=== PATIENT | female | born 1975 | race Caucasian/White ===

== ENCOUNTER 2017-03-20 14:40 | Outpatient (CLI) | payer MEDICAID ==
--- NOTE | 2017-03-20 15:44 | Mammography Report ---
Bilateral mammogram: No previous studies are available. CAD study utilized. Findings: Predominance adipose tissue bilaterally. Focal ill-defined asymmetry upper-outer anterior left breast. No microcalcifications. Normal axilla. Impression: Focal asymmetry left breast. Comparison with previous studies is recommended. If previous studies are not available spot mag and if necessary sonographic examination advised. BI-RADS CATEGORY: 0 = Needs additional imaging evaluation ACR BI-RADS MAMMOGRAPHIC CODES: 0 = Needs additional imaging evaluation; 1 = Negative; 2 = Benign; 3 = Probably benign; 4 = Suspicious; 5 = Malignant; 6 = Known biopsy-proven malignancy COMMENT: 1. Dense breast tissue, i.e., adenosis, fibrocystic changes, etc., may obscure an underlying neoplasm. 2. Approximately 10% of cancers are not detected with mammography. 3. A negative mammography report should not delay biopsy if a clinically suspicious mass is present. COMMENT: Patient follow-up letters are generated in [employer].
== END 2017-03-20 14:41 | disposition home or self-care (01) ==
LOC: MAMMO 14:40
PROVIDERS: ATTEND Obstetrics & Gynecology
DX: Z12.31 Encounter for screening mammogram for malignant neoplasm of breast (principal)
CPT/HCPCS: 77067; G0202

== ENCOUNTER 2017-05-17 15:38 | Emergency (ER) | payer MEDICAID ==
[2017-05-17 16:34] VITALS: BP 125/87
[2017-05-17 17:06] LABS: Basophils % (Auto) 0.4 % (0.0-1.8); Eosinophils % (Auto) 2.4 % (0.0-4.3); Hematocrit 33.8 % (30.3-42.9); Hemoglobin 11.3 gm/dl (10.1-14.3); Mean Corpuscular HGB Conc 33 % (30-34); Mean Corpuscular Hemoglobin 28 pg (28-32); Mean Corpuscular Volume 85 fl (79-97); Platelet Count 273 K/mm3 (140-440); Red Blood Count 3.96 M/mm3 (3.65-5.03); Red Cell Distribution Width 16.8 % (13.2-15.2); White Blood Count 9.1 K/mm3 (4.5-11.0)
[2017-05-17 17:32] LABS: Alanine Aminotransferase 10 units/L (7-56); Albumin 4.3 g/dL (3.9-5); Albumin/Globulin Ratio 1.3 %; Alkaline Phosphatase 94 units/L (35-129); Anion Gap 17 mmol/L; BUN/Creatinine Ratio 30; Bilirubin,Total < 0.20 mg/dL (0.1-1.2); Blood Urea Nitrogen 15 mg/dL (7-17); Calcium 8.6 mg/dL (8.4-10.2); Carbon Dioxide 26 mmol/L (22-30); Chloride 100.9 mmol/L (98-107); Glucose 95 mg/dL (65-100); Lipase 33 units/L (13-60); Potassium 3.9 mmol/L (3.6-5.0); Sodium 140 mmol/L (137-145); Total Protein 7.5 g/dL (6.3-8.2)
[2017-05-17 17:36] LABS: Bilirubin,Urine NEG (Negative); Blood,Urine MOD (Negative); Ketones,Urine TR mg/dL (Negative); Leukocyte Esterase,Urine NEG (Negative); Mucus,Urine FEW /HPF; Nitrite,Urine NEG (Negative); Protein,Urine <15 mg/dL mg/dL (Negative); Urobilinogen,Urine < 2.0 mg/dL (<2.0); WBC,Urine < 1.0 /HPF (0.0-6.0)
== END 2017-05-17 23:22 | disposition left against medical advice (07) ==
LOC: ED 15:38
DX: M54.9 Dorsalgia, unspecified (principal); Z53.21 Procedure and treatment not carried out due to patient leaving prior to being seen by health care provider
CPT/HCPCS: 36415; 80053; 81001; 83690; 85025

== ENCOUNTER 2017-08-11 12:12 | Emergency (ER) | payer MEDICAID ==
[2017-08-11] MEDS ORDERED: NORCO 10/325 PO ONE (13:22)
--- NOTE | 2017-08-11 13:24 | Emergency Department Report ---
Blank Doc - Documentation Documentation: Patient 41-year-old with right sided chest pain radiating to back for 3 months. Has not taking any medication for symptoms. Symptoms got worse today 10 out of 10 to the point that patient can no longer proceed with her ADLs so she came to the ED. No nausea vomiting. 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 No long distance driving, no long flights. No leg pains or swelling.
[2017-08-11 13:34] LABS: Basophils % (Auto) 0.4 % (0.0-1.8); Eosinophils # (Auto) 0.1 K/mm3 (0.0-0.4); Eosinophils % (Auto) 1.4 % (0.0-4.3); Hematocrit 34.2 % (30.3-42.9); Hemoglobin 11.1 gm/dl (10.1-14.3); Lymphocytes # (Auto) 1.5 K/mm3 (1.2-5.4); Lymphocytes % (Auto) 14.7 % (13.4-35.0); Mean Corpuscular HGB Conc 32 % (30-34); Mean Corpuscular Hemoglobin 27 pg (28-32); Mean Corpuscular Volume 85 fl (79-97); Monocytes # (Auto) 0.7 K/mm3 (0.0-0.8); Monocytes % (Auto) 6.5 % (0.0-7.3); Red Blood Count 4.04 M/mm3 (3.65-5.03); Red Cell Distribution Width 16.5 % (13.2-15.2)
[2017-08-11 13:53] LABS: Alanine Aminotransferase 10 units/L (7-56); Albumin 3.6 g/dL (3.9-5); BUN/Creatinine Ratio 26; Blood Urea Nitrogen 13 mg/dL (7-17); Calcium 8.1 mg/dL (8.4-10.2); Hemolysis Index 86
[2017-08-11 14:16] LABS: Platelet Count 264 K/mm3 (140-440)
[2017-08-11] MEDS ORDERED: NACL 0.9% 1000 ML 1,000 ML IV ONE (15:19)
[2017-08-11] MEDS ORDERED: ZOFRAN IV ONE (15:20)
--- NOTE | 2017-08-11 17:20 | Cat Scan Report ---
FINAL REPORT EXAM: CT ANGIO CHEST HISTORY: severe right chest pain, vomiting COMPARISON: None available. TECHNIQUE: Contiguous axial images were obtained. Additional sagittal and coronal reformatted images were obtained. Administration of IV contrast given per institution protocol. Images submitted for interpretation. 100 cc Omnipaque 350. Max intensity projection images. FINDINGS: Heart upper limits of normal in size. Thoracic aorta is normal in caliber. No dissection. No pulmonary embolus. No pathologically enlarged intrathoracic or axillary lymph nodes. Mild linear atelectasis at the lung bases. Mild prominence of the extrapleural fat. No large airspace consolidation or effusion. Visualized thyroid gland is unremarkable. Tracheobronchial tree is patent. Please see CT of the abdomen and pelvis from the same day for further details of the visualized upper abdomen. Bony thorax is grossly intact. IMPRESSION: No pulmonary embolus. Thoracic aorta is normal in caliber. No dissection. Mild atelectasis at the lung bases. No dense consolidation or effusion.
--- NOTE | 2017-08-11 17:26 | Cat Scan Report ---
FINAL REPORT EXAM: CT ANGIO ABDOMEN PELVIS HISTORY: severe right chest pain, vomiting COMPARISON: CT of the chest from the same date. TECHNIQUE: Contiguous axial images were obtained. Additional sagittal and coronal reformatted images were obtained. Administration of IV contrast given per institution protocol. Images submitted for interpretation. Max intensity projection images. FINDINGS: Please see CT of the chest from the same day for further details of the visualized lung bases. Gallbladder surgically absent. Common bile duct measures up to 6 millimeters, borderline dilated. This likely relates to patient's post cholecystectomy state. Liver, spleen, pancreas are unremarkable. There is thickening the bilateral adrenal glands. No dominant mass. Horseshoe kidney. No solid renal lesion or hydronephrosis. Aorta is normal in caliber. No dissection or rupture. Major branches of the aorta are widely patent. Urinary bladder is partially decompressed. Uterus and ovaries are grossly unremarkable. There are few pelvic phleboliths. Trace fluid in the pelvis within physiologic limits. Portions of the colon are decompressed. This limits evaluation wall thickening. No adjacent fat stranding or fluid to suggest active inflammation the decompressed bowel. The appendix is normal in caliber measuring 5 millimeters. Lumbar vertebral body heights are preserved. Bony pelvis is grossly intact. IMPRESSION: Abdominal aorta is normal in caliber. No dissection or rupture. Major branches of the aorta widely patent. Mild wall thickening of the colon which appears relate to its decompressed state. No adjacent fat stranding or fluid to suggest active inflammation. Subtle colitis is not excluded. The appendix is normal in caliber. Incidental note of horseshoe kidney. No solid renal lesion or hydronephrosis.
--- NOTE | 2017-08-11 18:19 | Emergency Department Report ---
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 female with daughter at beside for chest pain on right side radiating to mid back with inhalation and movement for 3 months. 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 She went to [facility] and they diagnosed patient with muscle spasms. They didn't give her anything for symptoms or referral for f/u. She has not taken anything OTC for symptoms. Symptoms got worse today causing decrease in ADL's. Patient describes pain as 10 /10 with inhalation and movement. Denies nausea/vomiting, fever, numbness/ tingling, edema to BLE, and recent travel. MD Complaint: back pain (chest pain radiating to mid back) -: month(s) (3) Similar Symptoms Previously: Yes (She went to [facility] 1 month ago for the same symptoms) Place: home, work Severity: severe Severity scale (0 -10): 10 Quality: sharp, stabbing Consistency: intermittent Improves With: none Worsens With: movement, deep breaths/cough Context: unknown Associated Symptoms: chest pain (right side of chest). denies: numbness, difficulty walking, cough, difficulty urinating, diaphoresis, incontinence, fever/chills, constipation, headaches, abdominal pain, loss of appetite, malaise , nausea/vomiting, rash, seizure, shortness of breath, syncope - Related Data Previous Rx's Medication Instructions Recorded Last Taken Type Azithromycin [Zithromax Z-ROLDAN] 250 mg PO DAILY 5 Days #6 tablet 08/11/17 Unknown Rx Cyclobenzaprine HCl [Flexeril 5 MG 5 mg PO TID PRN #20 tab 08/11/17 Unknown Rx TAB] Diclofenac Potassium 50 mg PO Q6H PRN #20 tablet 08/11/17 Unknown Rx Allergies Allergy/AdvReac Type Severity Reaction Status Date / Time No Known Allergies Allergy Verified 05/17/17 16:28 ED Review of Systems ROS: Stated complaint: BACK PAIN Other details as noted in HPI Constitutional: denies: chills, fever Respiratory: denies: cough, shortness of breath, wheezing Cardiovascular: chest pain (with breathing). denies: palpitations Endocrine: no symptoms reported Gastrointestinal: denies: abdominal pain, nausea, diarrhea Musculoskeletal: back pain (right flank pain with movement and breathing). denies: joint swelling, arthralgia Skin: denies: rash, lesions Neurological: denies: headache, weakness, paresthesias ED Back Pain Physical Exam - Exam General: Vital signs noted. No distress. Alert and acting appropriately. Back/Abdomen: Yes Perilumbar Tenderness (tenderness on right), Yes Flank Tenderness (right), No Abdominal Tenderness, No Perithoracic Tenderness, No Sacroiliac Tenderness, No Straight Leg Raise Pain Neuro: Yes Normal Sensation, Yes Normal DTR's, No Motor Weakness, No Normal Gait (patient is slumped over and reports pain with standing and movement) ED Course Vital Signs 08/11/17 12:15 Temperature 97.8 F Pulse Rate 90 Respiratory 20 Rate Blood Pressure 134/83 O2 Sat by Pulse 98 Oximetry ED Medical Decision Making - Lab Data Result diagrams: 08/11/17 13:22 08/11/17 13:22 - Radiology Data Radiology results: report reviewed CTA of chest IMPRESSION: No pulmonary embolus. Thoracic aorta is normal in caliber. No dissection. Mild atelectasis at the lung bases. No dense consolidation or effusion. Abdomen and pelvis CT IMPRESSION: Abdominal aorta is normal in caliber. No dissection or rupture. Major branches of the aorta widely patent. Mild wall thickening of the colon which appears relate to its decompressed state. No adjacent fat stranding or fluid to suggest active inflammation. Subtle colitis is not excluded. The appendix is normal in caliber. Incidental note of horseshoe kidney. No solid renal lesion or hydronephrosis. - Medical Decision Making This is a 41 y.o. female presents with right chest pain that is radiating to right mid back with movement and deep breaths for 3 months. Seen at [facility] and diagnosed with muscle spasms. Patient is stable and examined by me. CTA of chest and CT of abdomen and pelvis obtained. Results discussed with patient. Obtained CBC, CMP, & d-dimer. Normal results. Patient received norco, zofran, and NS 1L bolus in ER. No acute signs of distress noted. Discussed plan to start Z-pack for mild bilateral atelectasis, flexeril, and diclofenac for muscle strain to lower back. Patient agrees to ED plan of care. Discharged home. Follow up with PCP in 24-72 hours. Critical care attestation.: If time is entered above; I have spent that time in minutes in the direct care of this critically ill patient, excluding procedure time. ED Disposition Clinical Impression: Back muscle spasm, Mild bibasilar atelectasis Low back strain Qualifiers: Encounter type: initial encounter Qualified Code(s): S39.012A - Strain of muscle, fascia and tendon of lower back, initial encounter Disposition: TO HOME OR SELFCARE Is pt being admited?: No Does the pt Need Aspirin: No Condition: Stable Instructions: Low Back Strain (ED), Muscle Spasm (ED) Additional Instructions: Rest Use ice or heat on affected area for 20 minutes and off for 2 hours. Take pain medication as needed for pain. Don't drive or operate heavy machinery while taking muscle relaxers because they may cause drowsiness. Follow up with Primary Care Provider in 24-72 hours. Prescriptions: Azithromycin [Zithromax Z-ROLDAN] 250 mg PO DAILY 5 Days #6 tablet Cyclobenzaprine HCl [Flexeril 5 MG TAB] 5 mg PO TID PRN #20 tab PRN Reason: Muscle Spasm Diclofenac Potassium 50 mg PO Q6H PRN #20 tablet PRN Reason: Pain Referrals: [facility] [Outside] - 3-5 Days [facility] [Outside] - 3-5 Days [facility] [Outside] - 3-5 Days Time of Disposition: 18:25 Print Language: [place]
[2017-08-11 18:39] VITALS: BP 126/86
--- NOTE | 2017-08-12 09:50 | XRay Report ---
ROUTINE CHEST, TWO VIEWS: HISTORY: Right sided chest pain. The trachea, heart, mediastinal contour, lung kent and bony thorax are unremarkable. IMPRESSION: Unremarkable chest x-ray.
== END 2017-08-11 18:38 | disposition home or self-care (01) ==
LOC: ED 12:12
DX: S39.012A Strain of muscle, fascia and tendon of lower back, initial encounter (principal); J98.11 Atelectasis; M62.838 Other muscle spasm; X58.XXXA Exposure to other specified factors, initial encounter; Y93.89 Activity, other specified; Y92.89 Other specified places as the place of occurrence of the external cause; Y99.8 Other external cause status
CPT/HCPCS: 36415; 71046; 71275; 74174; 80053; 85025; 96361; 96374; 99284; J2405; J7030; Q9967

== ENCOUNTER 2018-01-15 14:19 | Outpatient (CLI) | payer MEDICAID ==
--- NOTE | 2018-01-15 15:37 | XRay Report ---
Bilateral hand: History: Head pain. Findings: No periosteal reaction lytic lesion or fracture. No dislocation. Impression: Essentially negative right and left hand.
== END 2018-01-15 14:20 | disposition home or self-care (01) ==
LOC: SPVIMAG 14:19
PROVIDERS: ATTEND Orthopaedic Surgery Sports Medicine
DX: M79.642 Pain in left hand (principal); M79.641 Pain in right hand; Z90.710 Acquired absence of both cervix and uterus